=== PATIENT | female | born 1950 | race Caucasian/White ===

== ENCOUNTER → 2018-01-08 | Day surgery (SDC) | payer MEDICARE, OTHER ==
[~2018-01-08] MED LIST: ALEVE220 MG PO; ARNICA LG1 GM TOP; ASPIR 8181 MG PO; ATORVASTATIN CA40 MG PO; BENADRYL25 MG PO; FISH OIL 1,001000 M2 PO; HYDROCODONE-AP1 EAC6 PO; SYNTHROID100 MCG PO; TOPROL XL25 MG PO; TUMS PO; UNICOMPLEX M TA1 TA1 PO; VITAMIN D-32000 UNIT PO
--- NOTE | ~2018-01-08 | OP ---
[address] [address] OPERATIVE REPORT Name: MIAH ZABALA Room: [facility].#: [id number] Admission: 01/08/18 Attend Phys: Marcio Rojas MD Discharge: Date of : 48 Report #: [id number] THIS REPORT FOR: //name// Please see the post operative note for details of the operative report. By: [id number] Records Staff BERENICE /LENIN
--- NOTE | 2018-01-10 13:23 | S ---
[address] [address] SURGICAL PATH RPT PROCEDURE Name: JIA ZABALA Room: [facility].#: [id number] Admission: 01/08/18 Date of : 48 Discharge: Report #: [id number] Path Case #: [id number] PATHOLOGY REPORT COLLECTION DATE: 01/08/2018 RECEIVED DATE: 01/09/2018 SUBMITTING PHYS: Dr. Marcio Rojas OTHER PHYS: Dr. Niurka Knox SPECIMEN(S) RECEIVED: A.Endocervical currettage B.Endometrial currettage with polyp * * * * * * * * * * * * FINAL DIAGNOSIS: A. Endocervical curettage: - Scant benign endocervical and squamous epithelium with mild acute and chronic inflammation, negative for dysplasia. - Scant benign nonsecretory endometrium without atypia. B. Endometrial curettage with polyp: - Hyperplastic endometrium (simple and focally complex hyperplasia without cytologic atypia) including fragments of endometrial polyp(s). (JESUS:pit; 01/10/2018) PATHOLOGIST: Tejinder Crowe M.D. REPORT ELECTRONICALLY SIGNED BY: Tejinder Crowe M.D. DATE/TIME: 01/10/2018 13:23 * * * * * * * * * * * * GROSS PATHOLOGY: A. Received in formalin labeled "Jia Rahul, endocervical curettage," is blood-tinged mucoid material containing small fragments of ren membranous tissue, measuring 0.5 x 0.5 x 0.1 cm in aggregate dimensions. The specimen is submitted entirely in cassette A1. B. Received in formalin labeled "Jia Zabala, endometrial curettage with polyp," are multiple segments of red-ren membranous tissue admixed with a slight amount of mucoid material measuring 3.2 x 3.2 x 0.7 cm in aggregate dimensions. The specimen is submitted entirely in cassette B1 and B2. (CAA; 01/09/2018) CLINICAL HISTORY: Postmenopausal bleeding, [place] [address] SURGICAL PATH RPT PROCEDURE Name: JIA ZABALA Room: [facility].#: [id number] Admission: 01/08/18 Date of : 48 Discharge: Report #: [id number] Path Case #: [id number] INITIAL CPT CODE(S): A; 40362 B; 39834 Professional services performed by [employer] at [facility], [address] [place] [id number]. Technical services performed by [employer] at [address] [place] [address], [address], [place] [address]. [facility] [address] [address] PHONE: [phone] DIRECTOR: Paco Roberts M.D. * * * END OF REPORT * * *
== END | disposition home or self-care (01) ==
LOC: M.SUR 05:44
DX: N85.01 Benign endometrial hyperplasia (principal); N72 Inflammatory disease of cervix uteri; Z88.8 Allergy status to other drugs, medicaments and biological substances; Z79.82 Long term (current) use of aspirin; Z79.899 Other long term (current) drug therapy; Z79.891 Long term (current) use of opiate analgesic

== ENCOUNTER → 2018-02-12 | Outpatient (CLI) | payer MEDICARE, OTHER | LOC: M.ULTRA 02-01 15:59 | DX: Z12.31 Encounter for screening mammogram for malignant neoplasm of breast (principal) ==

== ENCOUNTER → 2018-02-19 | Outpatient (CLI) | payer MEDICARE, OTHER | LOC: M.ULTRA 10:50 | DX: Z12.31 Encounter for screening mammogram for malignant neoplasm of breast (principal); R10.32 Left lower quadrant pain ==

== ENCOUNTER → 2019-01-30 | Outpatient (CLI) | payer MEDICARE, OTHER | LOC: M.RAD 09:57 | DX: Z12.31 Encounter for screening mammogram for malignant neoplasm of breast (principal) ==

== ENCOUNTER → 2019-03-18 | Outpatient (CLI) | payer MEDICARE, OTHER ==
[2019-03-18 12:46] LABS: CREATININE 0.9 mg/dL (0.6-1.3)
== END ==
LOC: M.LAB 12:14 → M.MRI 13:30
PROVIDERS: Registered Nurse
DX: S43.492A Other sprain of left shoulder joint, initial encounter (principal); M19.012 Primary osteoarthritis, left shoulder; J44.9 Chronic obstructive pulmonary disease, unspecified; E78.00 Pure hypercholesterolemia, unspecified; E78.5 Hyperlipidemia, unspecified; E03.9 Hypothyroidism, unspecified; Z88.5 Allergy status to narcotic agent; Z88.8 Allergy status to other drugs, medicaments and biological substances; X58.XXXA Exposure to other specified factors, initial encounter; Y93.89 Activity, other specified; Y92.89 Other specified places as the place of occurrence of the external cause; Y99.8 Other external cause status

== ENCOUNTER → 2020-04-06 | Outpatient (CLI) | payer MEDICARE, OTHER ==
--- NOTE | 2020-04-06 17:12 | 2DMMODE ---
[place] [address] 2 D/M-MODE ECHOCARDIOGRAM Name: MIAH ZABALA Room: [facility]#: [id number] Admission: 04/06/20 Attend Phys: Saroj Hull Discharge: Date of : 48 Date of Service: 04/06/20 1710 Report #: [id number] THIS REPORT FOR: cc: Oniel Banks. Oniel Humphrey. Jevon Sims MD [facility] ~ APPROVED REPORT Study performed: 04/06/2020 15:25:00 EXAM: Comprehensive 2D, Doppler, and color-flow Echocardiogram Patient Location: Out-Patient BSA: 1.87 HR: 64 bpm BP: 117/71 mmHg Other Information Study Quality: Fair Indications Dyspnea 2D Dimensions IVSd: 9.25 (7-11mm) LVOT Diam: 20.12 (18-24mm) LVDd: 38.16 mm PWd: 9.69 (7-11mm) Ascending Ao: 25.89 (22-36mm) LVDs: 25.83 (25-40mm) Aortic Root: 24.28 mm Volumes Left Atrial Volume (Systole) LA ESV Index: 11.30 mL/m2 Aortic Valve AoV Peak Leroy.: 1.12 m/s AO Peak Gr.: 5.06 mmHg LVOT Max P.57 mmHg AO Mean Gr.: 2.75 mmHg LVOT Mean P.72 mmHg LVOT Max V: 0.94 m/s AO V2 VTI: 22.97 cm LVOT Mean V: 0.61 m/s INDY (VTI): 3.01 cm2 LVOT V1 VTI: 21.71 cm Mitral Valve E/A Ratio: 0.74 [place] [address] 2 D/M-MODE ECHOCARDIOGRAM Name: MIAH ZABALA Room: [facility]#: [id number] Admission: 04/06/20 Attend Phys: Saroj Hull Discharge: Date of : 48 Date of Service: 04/06/20 1710 Report #: [id number] MV Decel. Time: 250.70 ms MV E Max Leroy.: 0.53 m/s MV PHT: 72.70 ms MVA (PHT): 3.03 cm2 TDI E/Lateral E': 5.89 E/Medial E': 5.30 Medial E' Leroy.: 0.10 m/s Lateral E' Leroy.: 0.09 m/s Pulmonary Valve PV Peak Leroy.: 0.82 m/s PV Peak Gr.: 2.68 mmHg Left Ventricle The left ventricle is normal size. There is normal LV segmental wall motion. Mild concentric left ventricular hypertrophy. Left ventricular systolic function is normal. LVEF is 65-70%. Grade I - abnormal relaxation pattern. Right Ventricle The right ventricle is normal size. The right ventricular systolic function is normal. Atria The left atrium size is normal. The right atrium size is normal. Aortic Valve The aortic valve is normal in structure. No aortic regurgitation is present. There is no aortic valvular stenosis. Mitral Valve The mitral valve is normal in structure. There is no mitral valve regurgitation noted. No evidence of mitral valve stenosis. Tricuspid Valve The tricuspid valve is normal in structure. There is no tricuspid valve regurgitation noted. Pulmonic Valve The pulmonary valve is normal in structure. There is no pulmonic valvular regurgitation. Great Vessels The aortic root is normal in size. IVC is normal in size and collapses >50% [place] [address] 2 D/M-MODE ECHOCARDIOGRAM Name: MIAH ZABALA Room: [facility]#: [id number] Admission: 04/06/20 Attend Phys: Saroj Hull Discharge: Date of : 48 Date of Service: 04/06/20 1710 Report #: [id number] Pericardium There is no pericardial effusion. <Conclusion> The left ventricle is normal size. Mild concentric left ventricular hypertrophy. Left ventricular systolic function is normal. LVEF is 65-70%. Grade I - abnormal relaxation pattern. IVC is normal in size and collapses >50% with inspiration. <ELECTRONICALLY SIGNED> By: Jevon Chandra MD, FACC 04/06/201709 09 09 Jevon Chandra MD, FACC /INF
== END ==
LOC: M.CRD 04-05 15:00
DX: R06.02 Shortness of breath (principal)

== ENCOUNTER → 2020-06-28 | Outpatient (CLI) | payer MEDICARE, OTHER | LOC: M.RAD 03-04 11:00 | PROVIDERS: ATTEND Specialist | DX: Z12.31 Encounter for screening mammogram for malignant neoplasm of breast (principal) ==

== ENCOUNTER → 2020-07-20 | Outpatient (CLI) | payer MEDICARE, OTHER ==
--- NOTE | 2020-07-27 08:01 | PF ---
[address] [address] PULMONARY FUNCTION REPORT Name: MIAH ZABALA Room: [facility]#: [id number] Admission: 07/20/20 Attend Phys: Mauri Paul MD Discharge: Date of : 48 Report #: [id number] THIS REPORT FOR: //name// CC: Mauri Ledesma [place] DATE OF SERVICE: 07/20/2020 The FEV1/FVC ratio is decreased to 49% with a forced vital capacity decreased to 58%. The FEV1 is also decreased to 37%. The [id number] is decreased to 12%. After the administration of a bronchodilator, there is significant increase in forced vital capacity by 34% and the FEV1 by 41%. The patient's post-bronchodilator FEV1 is noted to be 1.19 liters. The total lung capacity is increased to 121% with a residual volume increased to 193%. The DLCO as adjusted for hemoglobin is severely decreased to only 16%; however, when also adjusted for alveolar ventilation, the DLCO is decreased to 42%. IMPRESSION: 1. Severe obstruction, but with evidence of reversibility. 2. Hyperinflation. 3. Markedly decreased DLCO as above. <ELECTRONICALLY SIGNED> By: Mauri Paul MD 07/27/20 0801 [id number] Paul MD /nellie
== END ==
LOC: M.PUL 11:00
PROVIDERS: ATTEND Internal Medicine Critical Care Medicine
DX: J44.9 Chronic obstructive pulmonary disease, unspecified (principal); Z87.891 Personal history of nicotine dependence

== ENCOUNTER → 2021-12-08 | Outpatient (CLI) | payer OTHER | LOC: M.CT 12:33 | PROVIDERS: ATTEND Specialist | DX: Z13.6 Encounter for screening for cardiovascular disorders (principal); I25.10 Atherosclerotic heart disease of native coronary artery without angina pectoris ==